=== PATIENT | female | born 1950 | race Caucasian/White ===

== ENCOUNTER 2020-08-11 10:57 | Outpatient (CLI) | payer MEDICARE, SELFPAY ==
--- NOTE | 2020-08-11 11:04 | XR_ITS ---
WS: [id number] HIP WITH PELVIS LEFT TECHNIQUE: 3 views of the left hip with pelvis CLINICAL INFORMATION: chronic left hip pain COMPARISON: None. FINDINGS: Pelvic phleboliths. Mild degenerative arthritis both hips with joint space narrowing. No acute fractu res. Normal femoral necks. Normal pubic rami. XR/XR hip LT 2-3V wo/w pel* [id number] IMPRESSION: Mild degenerative arthritis both hips. No acute fractures.
== END 2020-08-11 10:58 | disposition home or self-care (01) ==
PROVIDERS: PCP Family Medicine; Visit Provider Family Medicine
DX: R53.83 Other fatigue (principal); E66.9 Obesity, unspecified; Z13.6 Encounter for screening for cardiovascular disorders; M16.0 Bilateral primary osteoarthritis of hip
CPT/HCPCS: 73502; 80053; 80061; 82306; 84443; 85025

== ENCOUNTER 2021-02-25 10:08 | Emergency (ER) | payer OTHER, SELFPAY ==
[2021-02-25 10:27] VITALS: BP 141/97; PULSE 71; RESP 18; O2SAT 96; BMI 36.2
--- NOTE | 2021-02-25 10:45 | XRR_ITS ---
PROCEDURE INFORMATION: Exam: XR Left Knee Exam date and time: 02/25/2021 10:45 AM Age: 70 years old Clinical indication: Injury or trauma; Fall; Blunt trauma; Knee; Left; Prior surgery TECHNIQUE: Imaging protocol: XR Left knee. Views: 3 views. COMPARISON: CR (LOW EXM, ) 02/25/2021 11:05 AM FINDINGS: Bones/joints: Left knee arthroplasty. Components appear intact. Normal alignment. No acute fracture. Soft tissues: Soft tissues unremarkable. XR/XR knee LT 3V* [id number] IMPRESSION: No acute radiographic findings. Radiation Dose CTDIVOL = (mGy): DLP = (mGy-cm)
--- NOTE | 2021-02-25 10:45 | XRR_ITS ---
PROCEDURE INFORMATION: Exam: XR Left Ankle Exam date and time: 02/25/2021 10:45 AM Age: 70 years old Clinical indication: Injury or trauma; Fall; Blunt trauma; Ankle; Left TECHNIQUE: Imaging protocol: XR Left ankle. Views: 3 or more views. COMPARISON: No relevant prior studies available. FINDINGS: Bones/joints: No evidence of fracture or dislocation. Ankle mortise intact. Mild degenerative changes of the midfoot. Soft tissues: Normal. XR/XR ankle LT min 3V* [id number] IMPRESSION: No acute radiographic findings. Radiation Dose CTDIVOL = (mGy): DLP = (mGy-cm)
--- NOTE | 2021-02-25 10:45 | XRR_ITS ---
PROCEDURE INFORMATION: Exam: XR Left Elbow Exam date and time: 02/25/2021 10:45 AM Age: 70 years old Clinical indication: Injury or trauma; Fall; Blunt trauma (contusions or hematomas); Elbow; Left TECHNIQUE: Imaging protocol: XR Left elbow. Views: 3 or more views. COMPARISON: No relevant prior studies available. FINDINGS: Bones/joints: Normal. Soft tissues: Normal. XR/XR elbow LT min 3V* [id number] IMPRESSION: No acute findings. Radiation Dose CTDIVOL = (mGy): DLP = (mGy-cm)
--- NOTE | 2021-02-25 10:48 | W.ED.FALL ---
HPI - Fall General: Chief Complaint: Fall Stated Complaint: FALL @ 10 BOX;INJURED: L ELBOW/KNEE/ANKLE, H/A Time Seen by Provider: 02/25/21 10:37 Source: patient Mode of arrival: ambulatory Limitations: no limitations History of Present Illness: HPI Narrative: While grocery shopping patient tripped over a pallet fell to the knee/elbow of left side. Patient caught herself during the fall rolling her ankle. Now complaining of left knee, elbow, ankle pain. Currently has headache but no injury to her head or history of striking her head. MD complaint: fall Onset (ago): minute(s) Fall from: standing Fall witnessed: yes, by family Place fall occurred: other Loss of consciousness: None Prolonged down time: no Symptoms prior to fall: none Context: tripped/slipped Location of injury - extremities: Left: elbow (Abrasion superficial ), knee and ankle Associated symptoms-after fall: Reports no associated symptoms Review of Systems General: Reports: 10 or more systems reviewed and unremarkable except in HPI and below Musc: Reports: joint pain and joint swelling PFSH ED PFSH: Medical History (Updated 02/25/21 @ 14:01 by Lisa Deshpande APRN) Mild intermittent asthma without complication Surgical History (Updated 08/11/20 @ 10:06 by Saloni Pedraza DO) H/O total knee replacement BILAT H/O: hysterectomy HAD OVARIAN MASS - NO CANCER Family History Other CAD (coronary artery disease) Cancer Diabetes Hypertension Social History Smoking and tobacco status: former smoker Alcohol intake: current Alcohol intake frequency: 3 or more drinks per day Alcohol type: beer and hard liquor Physical Exam Const: COMMON NORMALS: no acute distress, patient oriented x3, healthy appearing and alert GENERAL APPEARANCE: cooperative, comfortable and well kempt HENMT: COMMON NORMALS: normocephalic and atraumatic HEAD & SCALP: normal to inspection, normocephalic and atraumatic Eye: COMMON NORMALS: Equal, round and reactive pupils present GENERAL EYE: appearance normal, both eyes and all related structures PUPIL: Yes Equal, round and reactive pupils present Neck/C-Spine: COMMON NORMALS: full ROM, no lymphadenopathy and no JVD Lymph: LYMPHATIC: no lymphadenopathy noted Resp: COMMON NORMALS: normal respiratory effort, No retractions, No use of accessory muscles and clear to auscultation bilaterally EFFORT & INSPECTION: Yes able to speak in complete sentences AUSCULTATION: clear to auscultation bilaterally Cardio: COMMON NORMALS: no JVD, regular rate, S1 normal heart sound present and S2 normal heart sound present RATE: regular rate HEART SOUNDS: S1 normal heart sound present and S2 normal heart sound present GI: COMMON NORMALS: Normal to inspection, nondistended, normoactive bowel sounds present Extremity: GENERAL: Yes normal exam except as noted LEFT UPPER EXTREMITY: Yes shoulder joint Left shoulder joint: Yes palpation (tender), Yes ROM (full) and Yes neurovascular exam (intact) LEFT LOWER EXTREMITY: Yes knee joint Left knee: Yes palpation (Tender), Yes ROM (painful) and Yes neurovascular exam (intact) and Yes ankle joint Left ankle: Yes palpation (tender), Yes ROM (painful) and Yes neurovascular exam (intact) Neuro: COMMON NORMALS: patient oriented x3 SENSORIUM/ORIENTATION: Yes alert Psych: APPEARANCE: Yes well kempt Skin: COMMON NORMALS: no rashes or lesions noted SKIN IMAGES (FEMALE): 1. superficial abrasion. 2. ecchymosis GENERAL SKIN EXAM: no rashes or lesions noted Course Vital Signs: Vital signs: Vital Signs Pulse Rate 71 02/25/21 10:27 Respiratory Rate 18 02/25/21 10:27 Blood Pressure 141/97 02/25/21 10:27 Pulse Oximetry 96 02/25/21 10:27 MDM - Fall Imaging Data^: Other Xray: Attestation: I personally reviewed and interpreted this imaging study as follows: Radiologist's impression: Jayla Santiagou 70 F 1950 [address] [address]WKed ReportSigned Patient: Jayla Santiago #: [id number]: 1950cct#:[id number]/Sex: 70 / FADM Date: 02/25/21Loc: ERRoom/Bed:Attending Dr: Ordering Provider/Ordering MD: Lisa Deshpande Date of Service: 02/25/21 Procedure(s): XR shoulder LT min 2V* 26762 Accession Number(s): [id number] Report Number: [id number] PROCEDURE INFORMATION: Exam: XR Left Shoulder Exam date and time: 02/25/2021 10:53 AM Age: 70 years old Clinical indication: Injury or trauma; Fall; Blunt trauma (contusions or hematomas); Shoulder; Left TECHNIQUE: Imaging protocol: XR Left shoulder. Views: 2 or more views. COMPARISON: CR (UP EXM, ) 02/25/2021 11:09 AM FINDINGS: Bones/joints: Bones intact and normally aligned. Soft tissues: Normal. XR/XR shoulder LT min 2V* [id number] IMPRESSION: No acute radiographic findings. Radiation Dose CTDIVOL = (mGy): DLP = (mGy-cm) Dictated By:Vaibhav Howe MDSigned By:Vaibhav Howe MDSigned Date/Time:02/25/21 1252DD/ [address] [address]IQtf ReportSigned Patient: Jayla Santiago #: [id number]: 1950cct#:[id number]/Sex: 70 / FADM Date: 02/25/21Loc: ERRoom/Bed:Attending Dr: Ordering Provider/Ordering MD: Lisa Deshpande Date of Service: 02/25/21 Procedure(s): XR knee LT 3V* 55974 Accession Number(s): [id number] Report Number: [id number] PROCEDURE INFORMATION: Exam: XR Left Knee Exam date and time: 02/25/2021 10:45 AM Age: 70 years old Clinical indication: Injury or trauma; Fall; Blunt trauma; Knee; Left; Prior surgery TECHNIQUE: Imaging protocol: XR Left knee. Views: 3 views. COMPARISON: CR (LOW EXM, ) 02/25/2021 11:05 AM FINDINGS: Bones/joints: Left knee arthroplasty. Components appear intact. Normal alignment. No acute fracture. Soft tissues: Soft tissues unremarkable. XR/XR knee LT 3V* [id number] IMPRESSION: No acute radiographic findings. Radiation Dose CTDIVOL = (mGy): DLP = (mGy-cm) Dictated By:Vaibhav Howe MDSigned By:Vaibhav Howe MDSigned Date/Time:02/25/21 1251DD/ 1045 Xray Ortho: Attestation: I personally reviewed and interpreted this imaging study as follows: Radiologist's impression: [place] [id number] Joyce [place], [place] [address]BObx ReportSigned Patient: Jayla Santiago #: [id number]: 1950cct#:[id number]/Sex: 70 / FADM Date: 02/25/21Loc: ERRoom/Bed:Attending Dr: Ordering Provider/Ordering MD: Lisa Deshpande Date of Service: 02/25/21 Procedure(s): XR elbow LT min 3V* [id number] Accession Number(s): [id number] Report Number: [id number] PROCEDURE INFORMATION: Exam: XR Left Elbow Exam date and time: 02/25/2021 10:45 AM Age: 70 years old Clinical indication: Injury or trauma; Fall; Blunt trauma (contusions or hematomas); Elbow; Left TECHNIQUE: Imaging protocol: XR Left elbow. Views: 3 or more views. COMPARISON: No relevant prior studies available. FINDINGS: Bones/joints: Normal. Soft tissues: Normal. XR/XR elbow LT min 3V* 55084 IMPRESSION: No acute findings. Radiation Dose CTDIVOL = (mGy): DLP = (mGy-cm) Dictated By:Vaibhav Howe MDSigned By:Vaibhav Howe MDSigned Date/Time:02/25/21 1251DD/ 1045 [facility] [facility] Hospitalluann OsmanCharmaineGood [place], [place] [address]NJil ReportSigned Patient: Jayla Santiago #: [id number]: 1950cct#:[id number]/Sex: 70 / FADM Date: 02/25/21Loc: ERRoom/Bed:Attending Dr: Ordering Provider/Ordering MD: Lias Deshpande Date of Service: 02/25/21 Procedure(s): XR ankle LT min 3V* 79167 Accession Number(s): [id number] Report Number: [id number] PROCEDURE INFORMATION: Exam: XR Left Ankle Exam date and time: 02/25/2021 10:45 AM Age: 70 years old Clinical indication: Injury or trauma; Fall; Blunt trauma; Ankle; Left TECHNIQUE: Imaging protocol: XR Left ankle. Views: 3 or more views. COMPARISON: No relevant prior studies available. FINDINGS: Bones/joints: No evidence of fracture or dislocation. Ankle mortise intact. Mild degenerative changes of the midfoot. Soft tissues: Normal. XR/XR ankle LT min 3V* 72655 IMPRESSION: No acute radiographic findings. Radiation Dose CTDIVOL = (mGy): DLP = (mGy-cm) Dictated By:Vaibhav Howe MDSigned By:Vaibhav Howe MDSigned Date/Time:02/25/21 1250DD/ 1045 Discharge Plan Discharge Patient Disposition: Home Clinical Impression: Fall Qualifiers: Encounter type: initial encounter Qualified Code(s): W19.XXXA - Unspecified fall, initial encounter Condition: Stable Prescriptions: No Action No Known Home Medications RF: 0 diclofenac potassium 50 mg tablet 50 mg PO BID Qty: 60 RF: 0 Discharge Orders: Discharge ED (Routine); Ordered 02/25/21 Ordered By: Lisa Deshpande Referrals: Saloni Pedraza DO [Primary Care Provider] - Discharge Diet: Usual diet Discharge Activity: Resume usual activity Patient Instructions: Opioid Safety Coding Level of Care Code ED [place] for Pedrog Fwd Exam Comprehensive
--- NOTE | 2021-02-25 10:53 | XRR_ITS ---
PROCEDURE INFORMATION: Exam: XR Left Shoulder Exam date and time: 02/25/2021 10:53 AM Age: 70 years old Clinical indication: Injury or trauma; Fall; Blunt trauma (contusions or hematomas); Shoulder; Left TECHNIQUE: Imaging protocol: XR Left shoulder. Views: 2 or more views. COMPARISON: CR (UP EXM, ) 02/25/2021 11:09 AM FINDINGS: Bones/joints: Bones intact and normally aligned. Soft tissues: Normal. XR/XR shoulder LT min 2V* [id number] IMPRESSION: No acute radiographic findings. Radiation Dose CTDIVOL = (mGy): DLP = (mGy-cm)
--- NOTE | 2021-02-25 12:13 | PC.NURSE ---
Assumed care at this time.
== END 2021-02-25 14:13 | disposition home or self-care (01) ==
PROVIDERS: Emergency Provider Nurse Practitioner Family; PCP Family Medicine
DX: S50.312A Abrasion of left elbow, initial encounter (principal); W01.0XXA Fall on same level from slipping, tripping and stumbling without subsequent striking against object, initial encounter; Z87.891 Personal history of nicotine dependence
CPT/HCPCS: 73030; 73080; 73562; 73610; 99282

== ENCOUNTER → 2023-12-09 11:46 | Outpatient (BNVA) | payer MEDICARE, SELFPAY | PROVIDERS: PCP Family Medicine; Visit Provider Nurse Practitioner Family | DX: R39.9 Unspecified symptoms and signs involving the genitourinary system (principal); L03.116 Cellulitis of left lower limb | CPT/HCPCS: 81000; 87077; 87086; 87184 ==

== ENCOUNTER → 2024-05-16 10:36 | Outpatient (BNVA) | payer MEDICARE, SELFPAY | PROVIDERS: PCP Family Medicine; Visit Provider Family Medicine | DX: R39.9 Unspecified symptoms and signs involving the genitourinary system (principal) | CPT/HCPCS: 81000 ==

== ENCOUNTER → 2024-09-09 11:15 | Outpatient (BNVA) | payer MEDICARE, SELFPAY | PROVIDERS: PCP Family Medicine; Visit Provider Family Medicine | DX: Z00.00 Encounter for general adult medical examination without abnormal findings (principal); Z13.1 Encounter for screening for diabetes mellitus; Z13.6 Encounter for screening for cardiovascular disorders; E66.09 Other obesity due to excess calories; Z68.35 Body mass index [BMI] 35.0-35.9, adult; Z78.0 Asymptomatic menopausal state; R03.0 Elevated blood-pressure reading, without diagnosis of hypertension; Z76.89 Persons encountering health services in other specified circumstances | CPT/HCPCS: 85025 ==

== ENCOUNTER → 2024-10-14 13:42 | Outpatient (BNVA) | payer MEDICARE, SELFPAY | PROVIDERS: PCP Family Medicine; Visit Provider Family Medicine | DX: Z13.1 Encounter for screening for diabetes mellitus (principal); Z68.35 Body mass index [BMI] 35.0-35.9, adult; E66.09 Other obesity due to excess calories; Z13.6 Encounter for screening for cardiovascular disorders; Z00.00 Encounter for general adult medical examination without abnormal findings | CPT/HCPCS: 80053; 80061; 84443 ==

== ENCOUNTER → 2024-11-19 09:31 | Outpatient (BNVA) | payer MEDICARE, SELFPAY | PROVIDERS: PCP Family Medicine; Visit Provider Nurse Practitioner Family | DX: L82.1 Other seborrheic keratosis (principal); L81.4 Other melanin hyperpigmentation; D23.72 Other benign neoplasm of skin of left lower limb, including hip; L57.8 Other skin changes due to chronic exposure to nonionizing radiation; D48.5 Neoplasm of uncertain behavior of skin | CPT/HCPCS: 11102; 99203 ==

== ENCOUNTER → 2025-01-26 09:07 | Outpatient (BNVA) | payer MEDICARE, SELFPAY | PROVIDERS: PCP Family Medicine; Visit Provider Nurse Practitioner | DX: R39.9 Unspecified symptoms and signs involving the genitourinary system (principal) | CPT/HCPCS: 81000 ==

== ENCOUNTER 2025-02-09 20:03 | Outpatient (CLI) | payer MEDICARE, SELFPAY | END 2025-02-09 20:04 | disposition home or self-care (01) | LOC: SLEEP 20:06 | PROVIDERS: PCP Family Medicine; Referring Provider Family Medicine; Visit Provider Internal Medicine Pulmonary Disease | DX: G47.33 Obstructive sleep apnea (adult) (pediatric) (principal); E66.09 Other obesity due to excess calories; Z68.35 Body mass index [BMI] 35.0-35.9, adult; G47.36 Sleep related hypoventilation in conditions classified elsewhere | CPT/HCPCS: 95810 ==

== ENCOUNTER 2025-02-10 14:09 | Outpatient (CLI) | payer MEDICARE, SELFPAY ==
--- NOTE | 2025-02-10 14:30 | XR_ITS ---
WS: [id number] SCREENING DEXA SCAN [employer] CLINICAL INFORMATION: osteoporosis screening COMPARISON: None. FINDINGS: The L1-L4 bone mineral density measures 1.028 g/cm2. This corresponds to a T score score of -1.3 and Z score of -0.7. Left femoral neck bone mineral density measures 1.158 g/cm2. This corresponds to a T score of 1.2 and Z score of 1.9. Right femoral neck bone mineral density measures 1.170 g/cm2. This corresponds to a T score 1.3of and Z score of 2.0. Mean femoral neck bone mineral density measures 1.164 g/cm2. This corresponds to a T score of 1.2 and Z score of 2.0. XR/XR DEXA axial skeleton* 09497 IMPRESSION: Osteopenia lumbar spine. Normal bone mineralization femoral necks. Patient's FRAX calculated 10 year probability for major osteoporotic fracture i s 9.4% and osteoporotic hip fracture is 0.8%.
== END 2025-02-10 14:10 | disposition home or self-care (01) ==
PROVIDERS: PCP Family Medicine; Visit Provider Family Medicine
DX: Z13.820 Encounter for screening for osteoporosis (principal); Z78.0 Asymptomatic menopausal state; Z13.1 Encounter for screening for diabetes mellitus; Z13.6 Encounter for screening for cardiovascular disorders; Z00.00 Encounter for general adult medical examination without abnormal findings; M85.88 Other specified disorders of bone density and structure, other site
CPT/HCPCS: 77080

== ENCOUNTER → 2025-02-22 08:50 | Outpatient (BNVA) | payer MEDICARE, SELFPAY | PROVIDERS: PCP Family Medicine; Visit Provider Family Medicine | DX: J45.20 Mild intermittent asthma, uncomplicated (principal); Z83.49 Family history of other endocrine, nutritional and metabolic diseases | CPT/HCPCS: 82103 ==

== ENCOUNTER 2025-02-24 10:25 | Outpatient (CLI) | payer MEDICARE, SELFPAY ==
--- NOTE | 2025-02-24 10:30 | US_ITS ---
WS: [id number] THYROID ULTRASOUND HISTORY: f/u thyroid nodule COMPARISON: None available. Right lobe: 1.4 cm x 1.8 cm x 3.8 cm (w x ap x l). Volume: 4.4 cm3. Normal sized thyroid. There is a mixed cystic and solid nodule in the RIGHT thyroid, inferior pole. The entire nodule measures 2.1 x 1.3 x 2.3 cm. There is slight increased vascularity. There is cystic areas and solid areas with areas of increased and decreased echogenicity. There is a fluid/fluid level suggesting internal hemorrhage. There are a few small internal foci of increased echogenicity. Left lobe: 1.2 cm x 1.2 cm x 3.6 cm (w x ap x l). Volume: 2.5 cm3. Normal size and echotexture. No significant or dominant nodules are present. Isthmus: 0.3 cm. US/US thyroid 37324 IMPRESSION: TI-RADS 4; mildly suspicious nodule inferior pole RIGHT thyroid. Recommend ultr asound-guided fine-needle aspiration.
== END 2025-02-24 10:26 | disposition home or self-care (01) ==
LOC: RAD 10:27
PROVIDERS: PCP Family Medicine; Visit Provider Family Medicine
DX: E04.1 Nontoxic single thyroid nodule (principal)
CPT/HCPCS: 76536

== ENCOUNTER → 2025-04-23 13:33 | Outpatient (BNVA) | payer MEDICARE, SELFPAY | PROVIDERS: PCP Family Medicine; Visit Provider Nurse Practitioner Family | DX: D23.72 Other benign neoplasm of skin of left lower limb, including hip (principal); L81.4 Other melanin hyperpigmentation; L57.8 Other skin changes due to chronic exposure to nonionizing radiation; Z08 Encounter for follow-up examination after completed treatment for malignant neoplasm; Z85.828 Personal history of other malignant neoplasm of skin | CPT/HCPCS: 99213 ==